=== PATIENT | male | born 2000 ===

== ENCOUNTER 2023-12-14 15:14 | Outpatient (CLI) | payer OTHER, SELFPAY ==
--- NOTE | 2023-12-14 14:30 | DI.RAD_ITS ---
Exam(s) XR ELBOW LT COMPLETE EXAM: XR ELBOW LT COMPLETE CLINICAL HISTORY: left elbow pain. TECHNIQUE: 2D digital imaging was performed. Three views. COMPARISON: No exams were available for comparison FINDINGS: BONES: No acute fracture is present. No bony destructive lesion is seen. Smoothly marginated small ovoid bony fragment is noted adjacent to the ulnar aspect of the distal humerus. The findings may re present a small nonunited ossification center versus sequela of previous trauma. JOINTS: The elbow is normally aligned. No joint effusion is seen. Joint spaces are maintained. SOFT TISSUE: Normal. IMPRESSION: No acute abnormality. Bony density near medial epicondyle appears old. DATA REPOSITORY: RADIATION DOSE DELIVERED:
== END 2023-12-14 15:15 | disposition home or self-care (01) ==
LOC: DIORS 15:20
PROVIDERS: Visit Provider Physician Assistant
DX: S53.442D Ulnar collateral ligament sprain of left elbow, subsequent encounter (principal); X58.XXXD Exposure to other specified factors, subsequent encounter
CPT/HCPCS: 73080